=== PATIENT | female | born 1995 | race Caucasian/White ===

== ENCOUNTER 2018-07-25 22:53 | Emergency (ER) | payer OTHER ==
--- NOTE | 2018-07-26 00:35 | ED ---
Laceration/Wound HPI - HPI Summary HPI Summary: 22 female presents with right thumb laceration today. States she cut it and carving a pumpkin. She is right-handed. She believes her tetanus is up-to- date. She has no medical conditions. No numbness or tingling. No active bleeding at this time. She has full range of motion of her finger. 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 - History of Current Complaint Stated Complaint: RIGHT THUMB LAC Time Seen by Provider: 07/26/18 00:28 Pain Intensity: 2 - Allergy/Home Medications Allergies/Adverse Reactions: Allergies Allergy/AdvReac Type Severity Reaction Status Date / Time No Known Allergies Allergy Verified 07/25/18 22:56 Home Medications: Home Medications NK [No Home Medications Reported] 07/25/18 [History Confirmed 07/25/18] PMH/Surg Hx/FS Hx/Imm Hx Endocrine/Hematology History: Denies: Hx Anticoagulant Therapy Respiratory History: Denies: Hx Asthma Infectious Disease History: No Infectious Disease History: Denies: Traveled Outside the [place] in Last 30 Days - Family History Known Family History: Negative: Diabetes - Social History Alcohol Use: Weekly Substance Use Type: Reports: None Smoking Status (MU): Never Smoked Tobacco Review of Systems Negative: Fever Negative: Chest Pain Negative: Shortness Of Breath Positive: Other - laceration right thumb All Other Systems Reviewed And Are Negative: Yes Physical Exam Triage Information Reviewed: Yes Vital Signs On Initial Exam: Initial Vitals Temp Pulse Resp BP Pulse Ox 97.8 F 63 16 138/80 100 07/25/18 22:54 07/25/18 22:54 07/25/18 22:54 07/25/18 22:54 07/25/18 22:54 Vital Signs Reviewed: Yes Appearance: Positive: Well-Appearing Skin: Positive: Warm, Dry, Other - 1cm by 1/2cm laceration over IP joint right Head/Face: Positive: Normal Head/Face Inspection Eyes: Positive: Normal, Conjunctiva Clear ENT: Positive: Pharynx normal Respiratory/Lung Sounds: Positive: Clear to Auscultation, Breath Sounds Present Cardiovascular: Positive: Normal, RRR Musculoskeletal: Positive: Strength/ROM Intact - right thumb, Other - capillary refill<2secs Neurological: Positive: Normal Psychiatric: Positive: Normal Procedures - Laceration/Wound Repair 1 Location: Other - right thumb laceration Description: Linear Anesthesia: Local, 1.0% Length, Depth and Shape: 1cm by 1/2cm Irrigated w/ Saline (ccs): 30 Laceration/Wound Explored: no foreign body removed Closure: Single Layer Suture Type: Nylon Number of Sutures: 2 Sterile Dressing Applied?: No - telfa and metal finger splint Diagnostics - Vital Signs Vital Signs Temp Pulse Resp BP Pulse Ox 07/25/18 22:54 97.8 F 63 16 138/80 100 - Laboratory Lab Statement: Any lab studies that have been ordered have been reviewed, and results considered in the medical decision making process. Laceration Repair Course/Dx - Course Course Of Treatment: 22 female presents with right thumb laceration today. States she cut it and carving a pumpkin. She is right-handed. She believes her tetanus is up-to-date. She has no medical conditions. No numbness or tingling. No active bleeding at this time. She has full range of motion of her finger. 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 on exam has 1cm by 1/2cm on IP of right thumb that cleaned and placed 2 sutures on. placed in metal finger splint. patient understand and agrees with plan. - Differential Dx Differental Diagnoses: Abrasion, Avulsion, Laceration - Clinical Impression Provider Diagnoses: Laceration of right thumb Discharge - Sign-Out/Discharge Documenting (check all that apply): Patient Departure - Discharge Plan Condition: Good Disposition: HOME Patient Education Materials: Care For Your Stitches (ED) Referrals: No Primary Care Phys,NOPCP [Primary Care Provider] - Additional Instructions: Keep area in splint, change dressing once a day Keep area clean and dry for 48 hours Take Tylenol or ibuprofen for pain every 6 hours Return to ED or primary for suture removal in 8-10 days Return to ED if develop signs of infection such as fever, spreading redness, or pus formation - Billing Disposition and Condition Condition: GOOD Disposition: Home
[2018-07-26] MEDS ORDERED: Lidocaine 1%* 5 ML VIAL INJ ONE (00:36)
[2018-07-26] MEDS ORDERED: Lidocaine 1%* 5 ML VIAL ONE (00:39)
[2018-07-26 01:35] VITALS: BP 129/87
== END 2018-07-26 01:05 | disposition home or self-care (01) ==
LOC: ED 22:53
DX: S61.011A Laceration without foreign body of right thumb without damage to nail, initial encounter (principal); W26.0XXA Contact with knife, initial encounter; Y92.9 Unspecified place or not applicable
CPT/HCPCS: 12001; 99281